=== PATIENT | female | born 2005 | race Two or more races ===

== ENCOUNTER 2024-10-17 12:07 | Inpatient (IN) | payer OTHER ==
[~2024-10-17] VITALS: Ht 152.4 cm; Wt 63.5 kg
[2024-10-17 11:53] VITALS: BP 137/87
[2024-10-17] MEDS ORDERED: CHLORHEXIDINE GLUCONATE 120 ML BOTTLE TOP ONE ×2 (12:10→14:15)
[2024-10-17] MEDS ORDERED: LIDOCAINE HCL 1% 10ML VIAL ONE (12:10)
[2024-10-17] MEDS ORDERED: OXYTOCIN 20 UNITS/1000ML RL PIGGYBAG IV ONE ×2 (12:10→14:15)
[2024-10-17] MEDS ORDERED: ERYTHROMYCIN BASE OPHT 1GM EACH TUBE OP ONE ×2 (12:10→14:15)
[2024-10-17] MEDS ORDERED: RINGERS SOLUTION,LACTATED 1,000 ML IV SCH (12:15)
[2024-10-17] MEDS ORDERED: PRENATAL TABLE1 EAC4 (13:00)
[2024-10-17 13:32] LABS: HEMATOCRIT 35.4 % (36.0-45.00); HEMOGLOBIN 11.5 g/dL (12.0-15.00); INR 0.97; MEAN CELL VOLUME 87.3 fL (80.00-100.00); MEAN CORPUSCULAR HEMOGLOBIN 28.5 pg (27.00-32.0); MEAN CORPUSCULAR HGB CONC 32.7 g/dl (32.0-36.0); PARTIAL THROMBOPLASTIN TIME 28.5 SECONDS (22.0-34.0); PLATELET COUNT 219 K/uL (150-450); PROTHROMBIN TIME 10.6 SECONDS (9.0-11.5); RED BLOOD COUNT 4.05 M/uL (4.00-6.00); RED CELL DISTRIBUTION WIDTH 13.3 % (11.5-14.5)
[2024-10-17 14:03] LABS: BILIRUBIN TOTAL 0.35 mg/dL (0.3-1.2); CALCIUM 9.1 mg/dL (8.5-10.1); CREATININE SERUM 0.49 mg/dL (0.55-1.02); GFR 159.42; GLOBULINA 3.9 G/DL (2.4-3.5); POTASSIUM 3.71 mEq/L (3.5-5.1); TOTAL PROTEIN 6.9 gm/dL (6.4-8.2)
[2024-10-17] MEDS ORDERED: IBUprofen 800 MG TABLET PO PRN (14:15)
[2024-10-17] MEDS ORDERED: ACETAMINOPHEN 325 MG TABLET PO PRN (14:15)
[2024-10-17] MEDS ORDERED: LIDOCAINE HCL 1% 10ML VIAL IJ ONE (14:15)
[2024-10-17 14:16] VITALS: BP 132/61
[2024-10-17 14:31] VITALS: BP 136/69
[2024-10-17 15:15] VITALS: BP 120/66
[2024-10-17 16:47] VITALS: BP 120/79
[2024-10-17] MEDS ORDERED: HYDROCORTISONE 2.5% 30 GM TUBE RECTAL SCH (17:00)
[2024-10-17] MEDS ORDERED: BENZOCAINE/MENTHOL 90 ML BOTTLE TOP SCH (17:00)
[2024-10-18 00:09] VITALS: BP 124/81
[2024-10-18 01:30] LABS: HEMATOCRIT 35.6 % (36.0-45.00); HEMOGLOBIN 11.5 g/dL (12.0-15.00); MEAN CELL VOLUME 87.9 fL (80.00-100.00); MEAN CORPUSCULAR HEMOGLOBIN 28.5 pg (27.00-32.0); MEAN CORPUSCULAR HGB CONC 32.4 g/dl (32.0-36.0); PLATELET COUNT 209 K/uL (150-450); RED BLOOD COUNT 4.04 M/uL (4.00-6.00); RED CELL DISTRIBUTION WIDTH 13.5 % (11.5-14.5)
[2024-10-18 09:04] VITALS: BP 119/79
[2024-10-18 13:36] VITALS: BP 121/81
[2024-10-18 16:00] VITALS: BP 108/80
[2024-10-19] VITALS: BP 119/77
[2024-10-19 08:00] VITALS: BP 118/78
== END 2024-10-19 12:03 | disposition home or self-care (01) | DRG 807 ==
LOC: OB/GYN 12:07 → LDR 12:07 → OB/GYN 14:40
PROVIDERS: ADMIT Specialist; ATTEND Specialist
PROC: 10E0XZZ Delivery of Products of Conception, External Approach (ICD-10-PCS; principal; 2024-10-17)
PROC: 0HQ9XZZ Repair Perineum Skin, External Approach (ICD-10-PCS; 2024-10-17)
PROC: 4A1HXCZ Monitoring of Products of Conception, Cardiac Rate, External Approach (ICD-10-PCS; 2024-10-17)
PROC: 0W8NXZZ Division of Female Perineum, External Approach (ICD-10-PCS; 2024-10-17)
DX: O70.1 Second degree perineal laceration during delivery (principal); Z37.0 Single live birth; Z3A.38 38 weeks gestation of pregnancy